=== PATIENT | female | born 1955 | race African-American/Black ===

== ENCOUNTER 2016-10-20 19:06 | Emergency (ER) | payer OTHER ==
[~2016-10-20] VITALS: Ht 162.6 cm; Wt 108.0 kg
[~2016-10-20 19:06] MED LIST: ASPI-825 PO; CARV6 PO; DOCU-119 PO; FURO40 PO; INSLAN SQ; INSU100C3 SQ; NITR0.4T10 SL; SIMV40TA5 PO; SLOWK8 PO
[2016-10-20] MEDS ORDERED: LIRA0.6P SQ (19:32)
[2016-10-20 19:47] LABS: GLUCOSE COMMENT 2 Juice/Food/D50 Given; GLUCOSE,POINT OF CARE 62 MG/DL (70-110)
[2016-10-20 21:02] LABS: GLUCOSE,POINT OF CARE 54 MG/DL (70-110)
[2016-10-20] MEDS ORDERED: TraMADol HCL 50 MG TABLET PO ONE (21:30)
[2016-10-20 22:18] LABS: GLUCOSE COMMENT 1 Doctor Notified; GLUCOSE,POINT OF CARE 60 MG/DL (70-110)
[2016-10-20 22:23] VITALS: BP 108/62
== END 2016-10-20 23:07 | disposition home or self-care (01) ==
LOC: EMS 19:08
DX: S80.261A Insect bite (nonvenomous), right knee, initial encounter (principal); I20.9 Angina pectoris, unspecified; I25.10 Atherosclerotic heart disease of native coronary artery without angina pectoris; E11.9 Type 2 diabetes mellitus without complications; I11.9 Hypertensive heart disease without heart failure; E78.00 Pure hypercholesterolemia, unspecified; Z88.8 Allergy status to other drugs, medicaments and biological substances; Z95.1 Presence of aortocoronary bypass graft; Z79.4 Long term (current) use of insulin; W57.XXXA Bitten or stung by nonvenomous insect and other nonvenomous arthropods, initial encounter; Y93.89 Activity, other specified; Y92.89 Other specified places as the place of occurrence of the external cause; Y99.8 Other external cause status
CPT/HCPCS: 82962; 99284

== ENCOUNTER 2017-07-19 12:06 | Emergency (ER) | payer OTHER ==
[~2017-07-19] VITALS: Ht 162.6 cm; Wt 105.0 kg
[~2017-07-19 12:06] MED LIST changes: +LIRA0.6P SQ
[2017-07-19 14:32] LABS: GLUCOSE,POINT OF CARE 110 MG/DL (70-110)
[2017-07-19] MEDS ORDERED: IBUPROFEN 800 MG TABLET PO ONE (15:00)
[2017-07-19 15:35] VITALS: BP 127/79
== END 2017-07-19 15:53 | disposition home or self-care (01) ==
LOC: EMS 12:07
DX: S93.401A Sprain of unspecified ligament of right ankle, initial encounter (principal); I25.10 Atherosclerotic heart disease of native coronary artery without angina pectoris; E11.9 Type 2 diabetes mellitus without complications; E78.00 Pure hypercholesterolemia, unspecified; I11.9 Hypertensive heart disease without heart failure; I20.9 Angina pectoris, unspecified; Z88.8 Allergy status to other drugs, medicaments and biological substances; Z79.4 Long term (current) use of insulin; Z95.1 Presence of aortocoronary bypass graft; X58.XXXA Exposure to other specified factors, initial encounter; Y93.01 Activity, walking, marching and hiking; Y92.098 Other place in other non-institutional residence as the place of occurrence of the external cause; Y99.8 Other external cause status
CPT/HCPCS: 29515; 99284

== ENCOUNTER 2018-01-05 10:19 | Emergency (ER) | payer OTHER ==
[~2018-01-05] VITALS: Ht 162.6 cm; Wt 96.8 kg
[2018-01-05 10:34] LABS: GLUCOSE,POINT OF CARE 134 MG/DL (70-110)
[2018-01-05 12:03] VITALS: BP 120/78
[2018-01-05] MEDS ORDERED: MUPIROCIN CALCIUM 2% 22 GM OINTMENT TP ONE (12:30)
== END 2018-01-05 12:43 | disposition home or self-care (01) ==
LOC: EMS 10:20
DX: R60.0 Localized edema (principal); R21 Rash and other nonspecific skin eruption; I11.0 Hypertensive heart disease with heart failure; I50.9 Heart failure, unspecified; I25.810 Atherosclerosis of coronary artery bypass graft(s) without angina pectoris; E78.00 Pure hypercholesterolemia, unspecified; E11.9 Type 2 diabetes mellitus without complications; Z95.1 Presence of aortocoronary bypass graft; Z98.890 Other specified postprocedural states; Z95.810 Presence of automatic (implantable) cardiac defibrillator; Z79.82 Long term (current) use of aspirin; Z79.4 Long term (current) use of insulin; Z79.899 Other long term (current) drug therapy; Z88.8 Allergy status to other drugs, medicaments and biological substances

== ENCOUNTER 2018-05-10 22:59 | Emergency (ER) | payer OTHER ==
[~2018-05-10] VITALS: Ht 162.6 cm; Wt 111.0 kg
[2018-05-10] MEDS ORDERED: FURO80 PO (23:08)
[2018-05-10] MEDS ORDERED: DULA1.5P SQ (23:08)
[2018-05-10] MEDS ORDERED: INSLAN SQ (23:08)
[2018-05-11 01:49] LABS: EOSINOPHILS % (AUTO) 0.5 % (1.0-6.0); HEMATOCRIT 34.7 % (36-46); HEMOGLOBIN 11.8 g/dL (12.0-16.0); LYMPHOCYTES # (AUTO) 1.9 K/uL (1.0-4.8); LYMPHOCYTES % (AUTO) 33.9 % (22.0-44.0); MEAN CORPUSCULAR HEMOGLOBIN 29.3 pg (26.0-34.0); MEAN CORPUSCULAR HGB CONC 33.9 G/dL (31.0-37.0); MEAN CORPUSCULAR VOLUME 86 fL (80-100); MONOCYTES # (AUTO) 0.4 K/uL (0.1-1.0); MONOCYTES % (AUTO) 7.4 % (2.0-9.0); NEUTROPHILS # (AUTO) 3.2 K/uL (1.8-7.7); NEUTROPHILS % (AUTO) 57.2 % (40.0-70.0); PLATELET COUNT (AUTO) 185 K/uL (150-450); RED BLOOD CELL COUNT(AUTO) 4.02 MIL/uL (4.00-5.20); RED CELL DISTRIBUTION WIDTH 13.2 % (11.5-14.5)
[2018-05-11 01:56] LABS: CALCIUM, TOTAL 9.4 mg/dL (8.8-10.5); CREATININE 1.61 mg/dL (0.60-1.30); POTASSIUM 3.8 mmol/L (3.5-5.1)
[2018-05-11 02:02] LABS: ALBUMIN 3.2 g/dL (3.4-5.0); BILIRUBIN,TOTAL 0.4 mg/dL (0.1-1.0); TOTAL PROTEIN, SERUM 6.6 g/dL (6.4-8.2)
[2018-05-11 03:37] LABS: APPEARANCE,URINE CLEAR (CLEAR); BILIRUBIN,URINE NEGATIVE (NEGATIVE); GLUCOSE, URINE (UA) >=1000 mg/dL (NEGATIVE); KETONES,URINE NEGATIVE (NEGATIVE); LEUKOCYTE ESTERASE ,URINE NEGATIVE (NEGATIVE); NITRATE,URINE NEGATIVE (NEGATIVE); OCCULT BLOOD,URINE NEGATIVE (NEGATIVE); PH,URINE 5.5 (5.0-8.0); PROTEIN,URINE NEGATIVE (NEGATIVE); UROBILINOGEN,URINE 0.2 mg/dL (<=1.0)
[2018-05-11 04:04] LABS: BACTERIA,URINE Rare /HPF (None Seen); SQUAMOUS EPITHELIAL CELL,UR Moderate /LPF (None Seen)
[2018-05-11] MEDS ORDERED: INSULIN REGULAR, HUMAN 100 UNITS/ML SQ ONE (05:30)
[2018-05-11] MEDS ORDERED: SODIUM CHLORIDE 0.9% 1,000 ML IV ONE (06:15)
[2018-05-11 08:06] VITALS: BP 108/66
== END 2018-05-11 08:16 | disposition home or self-care (01) ==
LOC: EMS 23:00
DX: E11.65 Type 2 diabetes mellitus with hyperglycemia (principal); R60.0 Localized edema; R10.9 Unspecified abdominal pain; I10 Essential (primary) hypertension; E78.00 Pure hypercholesterolemia, unspecified; I25.10 Atherosclerotic heart disease of native coronary artery without angina pectoris; Z79.4 Long term (current) use of insulin; Z88.8 Allergy status to other drugs, medicaments and biological substances
CPT/HCPCS: 36415; 74176; 80053; 81001; 83880; 85025; 85379; 93970; 96360; 96372; 99284; J1815; J7030

== ENCOUNTER 2022-08-20 09:56 | Emergency (ER) | payer OTHER ==
[~2022-08-20] VITALS: Ht 162.6 cm; Wt 74.5 kg
[~2022-08-20 09:56] MED LIST changes: +ASPI-1444 PO; -ASPI-825 PO; +BUME1TAB6 PO; +CARV12 PO; -CARV6 PO; -FURO40 PO; -INSU100C3 SQ; +INSU100I3 SQ; -LIRA0.6P SQ; -NITR0.4T10 SL; +NITR0.4T52 SL; +OMEP20CA12 PO; +ROSU20TA73 PO; +SACU1TAB4 PO; +SEMA0.25 SQ; -SIMV40TA5 PO; -SLOWK8 PO
[2022-08-20] MEDS ORDERED: SEMA0.258 SQ (10:03)
[2022-08-20] MEDS ORDERED: PRED5DRO17 OU (10:03)
[2022-08-20] MEDS ORDERED: FINE10TA PO (10:03)
[2022-08-20] MEDS ORDERED: APIX2.5T PO (10:03)
[2022-08-20] MEDS ORDERED: INSU300I3 SQ (10:03)
[2022-08-20] MEDS ORDERED: GABA-1181 PO (10:03)
[2022-08-20] MEDS ORDERED: NITR0.4T50 SL (10:03)
[2022-08-20] MEDS ORDERED: CARV25TA32 PO (10:03)
[2022-08-20 13:48] VITALS: BP 134/79
[2022-08-20] MEDS ORDERED: IBUP-1492 PO (14:25)
== END 2022-08-20 14:44 | disposition home or self-care (01) ==
LOC: EMS 09:58
DX: S09.90XA Unspecified injury of head, initial encounter (principal); M25.512 Pain in left shoulder; E11.9 Type 2 diabetes mellitus without complications; E78.00 Pure hypercholesterolemia, unspecified; I25.119 Atherosclerotic heart disease of native coronary artery with unspecified angina pectoris; I11.9 Hypertensive heart disease without heart failure; Z98.890 Other specified postprocedural states; W19.XXXA Unspecified fall, initial encounter; Y93.89 Activity, other specified; Y92.89 Other specified places as the place of occurrence of the external cause; Y99.8 Other external cause status
CPT/HCPCS: 70450; 71045; 82962; 99284